=== PATIENT | female | born 1950 | race Caucasian/White ===

== ENCOUNTER 2016-05-06 11:29 | Emergency (ER) | payer MEDICARE, OTHER ==
[~2016-05-06 11:29] MED LIST: ATORVASTATIN CA40 M1 PO; AUG500 PO; ECO81 PO; LAC PO; METFORMIN HCL1000 MG PO; NOR10T PO; NOR5 PO; PRI20 PO
[2016-05-06 14:22] VITALS: BP 145/77
== END 2016-05-06 14:22 | disposition home or self-care (01) ==
LOC: ED 11:29
DX: I10 Essential (primary) hypertension (principal); E11.65 Type 2 diabetes mellitus with hyperglycemia
CPT/HCPCS: 82962

== ENCOUNTER 2018-01-30 21:20 | Emergency (ER) | payer MEDICARE, OTHER ==
[~2018-01-30] VITALS: Ht 157.5 cm; Wt 70.3 kg
[2018-01-30 21:24] VITALS: Ht 157.5 cm; Wt 70.3 kg
[2018-01-31 00:07] VITALS: BP 145/83
== END 2018-01-31 00:07 | disposition home or self-care (01) ==
LOC: ED 21:20
DX: S09.8XXA Other specified injuries of head, initial encounter (principal); M25.511 Pain in right shoulder; M54.2 Cervicalgia; I10 Essential (primary) hypertension; E11.9 Type 2 diabetes mellitus without complications; Z86.73 Personal history of transient ischemic attack (TIA), and cerebral infarction without residual deficits; Z90.49 Acquired absence of other specified parts of digestive tract; W18.39XA Other fall on same level, initial encounter; Y93.89 Activity, other specified; Y92.89 Other specified places as the place of occurrence of the external cause; Y99.8 Other external cause status
CPT/HCPCS: J1885; J2270; Q0092